=== PATIENT | female | born 1995 | race Hispanic/Latino ===

== ENCOUNTER 2019-04-13 18:18 | Inpatient (IN) | payer OTHER ==
[2019-04-13] MEDS ORDERED: Butorphanol Tartrate 1 MG/ML VIAL SLOW IVP PRN (20:38)
[2019-04-13] MEDS ORDERED: Ibuprofen 800 MG TAB PO PRN (20:38)
[2019-04-13] MEDS ORDERED: Zolpidem Tartrate 5 MG TAB PO PRN (20:38)
[2019-04-13] MEDS ORDERED: Docusate 100 MG CAP PO PRN (20:38)
[2019-04-13] MEDS ORDERED: NS / Oxytocin 40 units/1000ml 1,000 ML IV PRN (20:38)
[2019-04-13] MEDS ORDERED: HYDROcodone/Acetaminophen 5/325 mg Tablet PO PRN ×2 (20:38)
[2019-04-13] MEDS ORDERED: Misoprostol 200 MCG TAB PR PRN (20:38)
[2019-04-13] MEDS ORDERED: Promethazine HCl 25 MG/ML VIAL IM PRN (20:38)
[2019-04-13] MEDS ORDERED: Lidocaine 1% (PF) 30 ML VIAL SC PRN (20:38)
[2019-04-13] MEDS ORDERED: Ondansetron PF 4 MG/2 ML Vial IVP PRN (20:38)
[2019-04-13] MEDS ORDERED: hydrALAZINE 20 MG/ML VIAL SLOW IVP PRN (20:38)
[2019-04-13] MEDS ORDERED: Diphenoxylate HCl/Atropine Tablet PO PRN ×2 (20:38)
[2019-04-13] MEDS ORDERED: Acetaminophen 500 MG TAB PO PRN (20:38)
[2019-04-13] MEDS ORDERED: NS w/ Oxytocin 10 units 500 ML IV SCH (20:45)
[2019-04-13] MEDS: Lactated Ringer's 1,000 ML IV SCH (20:45)
--- NOTE | 2019-04-13 20:45 | PDOC.LDHP ---
Labor and Delivery H&P Chief complaint: scheduled induction HPI: 23 y/o at 39 and 3/7 weeks presents for term induction of labor. Patient has was councilled extensively regarding her smaller pelvic outlet and that she is at risk of arrest of labor and shoulder dystocia. She, however, asked for a trial of labor, rather than a scheduled . As such, she has presented for induction of labor and a trial for . Current gestational age (weeks): 39 Due date: 04/17/19 Grav: 1 Para: 0 Current complications: none Abnormal US findings: No Current medications: pre-kenny vitamins Social history: none - Physical Exam Vital signs reviewed and normal: yes General: NAD, resting Heart: RRR Lungs: CTAB Abdomen: gravid Extremeties: no edema FHT: category 1 - Assessment L&D Assessment: elective induction at term - Plan Plan: admit to L&D, cervical ripening
[2019-04-13 21:13] LABS: Hemoglobin 14.2 g/dL (12.0-16.0); Mean Corpuscular HGB CONC 34.6 g/dL (32.0-36.0); Mean Corpuscular Hemoglobin 31.3 pg (27.0-31.0); Mean Corpuscular Volume 90.7 fL (78.0-98.0); Platelet Count 170 thou/uL (130-400); RBC Distribution Width 13.1 % (11.5-14.5); Red Blood Cell (RBC) Count 4.52 mill/uL (4.20-5.40); White Blood Cell (WBC) Count 6.2 thou/uL (4.8-10.8)
[2019-04-13] MEDS: Misoprostol 100 MCG TAB VAG SCH (21:13)
[2019-04-13 21:50] LABS: Syphilis Antibody Nonreactive (Nonreactive); Syphilis Antibody Index 0.05 S/CO (<1.00 Non-Reactive)
[2019-04-14 01:05] LABS: HBSAg Index 0.28 S/CO (0-0.99); Hep B Surf Ag Non-Reactive S/CO (NonReactive)
[2019-04-14] MEDS: Misoprostol 100 MCG TAB VAG SCH ×2 (01:14→04:11)
[2019-04-14] MEDS: Lactated Ringer's 1,000 ML IV SCH (04:11)
[2019-04-14] MEDS ORDERED: Fentanyl 4 mcg/Bup 0.1% Cadd 100 ML ONE ×2 (15:42→23:11)
[2019-04-14] MEDS ORDERED: Bupivacaine 0.5% 10 ML VIAL ONE (15:50)
[2019-04-14] MEDS ORDERED: Fentanyl 100 MCG/2 ML VIAL ONE (15:50)
[2019-04-14] MEDS ORDERED: Fentanyl 100 MCG/2 ML VIAL I-THECAL ONE (16:22)
[2019-04-14] MEDS ORDERED: Ondansetron PF 4 MG/2 ML Vial IVP PRN (16:23)
[2019-04-14] MEDS ORDERED: Promethazine HCl 25 MG/ML VIAL IM PRN (16:23)
[2019-04-14] MEDS ORDERED: Lactated Ringer's 500 ML IV PRN (16:23)
[2019-04-14] MEDS ORDERED: diphenhydrAMINE 50 MG/ML VIAL IVP PRN (16:23)
[2019-04-14] MEDS ORDERED: Acetaminophen 325 MG TAB PO PRN (16:23)
[2019-04-14] MEDS ORDERED: Naloxone HCl 0.4 mg/ml Vial IVP PRN ×2 (16:23)
[2019-04-14] MEDS ORDERED: EPHEDRINE 25 MG/5 ML SYRINGE SLOW IVP PRN (16:23)
[2019-04-14] MEDS ORDERED: Communication Order-Pharmacy FS SCH (16:30)
[2019-04-14] MEDS ORDERED: Fentanyl 4 mcg/Bupivacaine 0.1% Cassette 100 ML EPIDURAL SCH (16:30)
[2019-04-14] MEDS ORDERED: Bupivacaine 0.25% 10 ML VIAL EPIDURAL SCH (16:30)
[2019-04-14] MEDS: NS w/ Oxytocin 10 units 500 ML IV SCH (20:58)
[2019-04-15] MEDS ORDERED: Bicitra 30 ML UDCUP ONE (01:11)
[2019-04-15] MEDS ORDERED: MORPHINE 5 MG/10 ML PF VIAL ONE (01:51)
[2019-04-15] MEDS ORDERED: Ondansetron PF 4 MG/2 ML Vial ONE (01:52)
[2019-04-15] MEDS ORDERED: Lidocaine 2% MPF 10 ML AMP (For Epidural Use) ONE (01:52)
[2019-04-15] MEDS ORDERED: Oxytocin 10 UNITS/ML VIAL ONE ×2 (01:52→03:01)
[2019-04-15] MEDS ORDERED: Meperidine HCl/PF 25 MG/ML VIAL SLOW IVP PRN (03:15)
[2019-04-15] MEDS ORDERED: L&D-Morphine 4 MG/ML VIAL SLOW IVP PRN (03:15)
[2019-04-15] MEDS ORDERED: Ketorolac Tromethamine 30 MG/ML VIAL IVP SCH (03:15)
[2019-04-15] MEDS ORDERED: HYDROmorphone 2 MG/ML VIAL SLOW IVP PRN (03:15)
[2019-04-15] MEDS ORDERED: Ondansetron HCl/PF 4 MG/2 ML Vial IVP PRN (03:15)
[2019-04-15] MEDS ORDERED: diphenhydrAMINE 50 MG/ML VIAL IVP PRN (03:16)
[2019-04-15] MEDS ORDERED: Naloxone HCl 0.4 mg/ml Vial IV PRN (03:16)
[2019-04-15] MEDS ORDERED: Promethazine HCl 25 MG/ML VIAL IM PRN ×2 (03:16→11:02)
[2019-04-15] MEDS ORDERED: Ketorolac Tromethamine 30 MG/ML VIAL IVP PRN (03:16)
[2019-04-15] MEDS ORDERED: Naloxone HCl 0.4 mg/ml Vial IVP PRN ×2 (03:16)
[2019-04-15] MEDS ORDERED: Ondansetron PF 4 MG/2 ML Vial IVP PRN ×2 (03:16→11:02)
[2019-04-15] MEDS ORDERED: Promethazine HCl 25 MG SUPP PR PRN (03:16)
[2019-04-15] MEDS ORDERED: Communication Order-Pharmacy FS SCH (03:30)
[2019-04-15] MEDS ORDERED: Ketorolac Tromethamine 30 MG/ML VIAL ONE (03:31)
[2019-04-15] MEDS: Methylergonovine 0.2 MG/ML VIAL IM PRN ×2 (03:33→05:30)
[2019-04-15] MEDS: Misoprostol 100 MCG TAB VAG SCH (03:44)
[2019-04-15] MEDS ORDERED: Misoprostol 200 MCG TAB ONE (04:19)
[2019-04-15] MEDS ORDERED: Carboprost 250 MCG/ML AMP ONE ×2 (05:03→05:28)
[2019-04-15] MEDS: Carboprost 250 MCG/ML AMP IM PRN ×2 (05:15→05:40)
[2019-04-15] MEDS ORDERED: Carboprost 250 MCG/ML AMP IM SCH (05:15)
[2019-04-15] MEDS ORDERED: Methylergonovine 0.2 MG/ML VIAL ONE (05:27)
[2019-04-15] MEDS ORDERED: hydrALAZINE 20 MG/ML VIAL ONE (06:01)
[2019-04-15] MEDS ORDERED: Diphenoxylate HCl/Atropine Tablet PO SCH (07:30)
[2019-04-15 08:26] LABS: Hemoglobin 13.7 g/dL (12.0-16.0); Mean Corpuscular HGB CONC 34.5 g/dL (32.0-36.0); Mean Corpuscular Hemoglobin 31.2 pg (27.0-31.0); Mean Corpuscular Volume 90.7 fL (78.0-98.0); Mean Platelet Volume 9.8 fL (7.4-10.4); Platelet Count 151 thou/uL (130-400); RBC Distribution Width 13.1 % (11.5-14.5); Red Blood Cell (RBC) Count 4.39 mill/uL (4.20-5.40); White Blood Cell (WBC) Count 16.1 thou/uL (4.8-10.8)
[2019-04-15] MEDS: Clindamycin/D5W 900 MG in Premix Bag 1 BAG IVPB SCH ×2 (09:07→17:40)
[2019-04-15] MEDS ORDERED: NS / Oxytocin 40 units/1000ml 1,000 ML ONE (09:29)
[2019-04-15] MEDS: CEFAZOLIN 2 GM in Premix Bag 1 BAG IVPB SCH ×2 (10:42→18:42)
[2019-04-15] MEDS ORDERED: hydrALAZINE 20 MG/ML VIAL SLOW IVP PRN (11:02)
[2019-04-15] MEDS ORDERED: Bisacodyl 10 MG SUPP PR PRN (11:02)
[2019-04-15] MEDS ORDERED: Misoprostol 200 MCG TAB PR PRN (11:02)
[2019-04-15] MEDS ORDERED: Zolpidem Tartrate 5 MG TAB PO PRN (11:02)
[2019-04-15] MEDS ORDERED: Methylergonovine 0.2 MG/ML VIAL IM PRN (11:02)
[2019-04-15] MEDS ORDERED: Lanolin Ointment 7 GM TUBE TOP PRN (11:02)
[2019-04-15] MEDS ORDERED: diphenhydrAMINE 25 MG CAP PO PRN (11:02)
[2019-04-15] MEDS ORDERED: Adacel (T-DAP) 0.5 ML SYRINGE IM ONE (11:02)
[2019-04-15] MEDS ORDERED: Simethicone Chewable 80 MG TAB PO PRN (11:02)
[2019-04-15] MEDS ORDERED: NS / Oxytocin 40 units/1000ml 1,000 ML IV SCH (11:02)
[2019-04-15] MEDS ORDERED: Measles/Mumps/Rubella 10 MCG/0.5 ML VIAL SC ONE (11:02)
[2019-04-15] MEDS ORDERED: Varicella virus, LIVE 0.5 ML VIAL SC ONE (11:02)
[2019-04-15] MEDS ORDERED: Docusate Calcium (SURFAK) 240 MG CAP PO SCH (11:45)
[2019-04-15] MEDS ORDERED: Prenatal Vitamin 1 TAB PO SCH (11:45)
[2019-04-15] MEDS: Ibuprofen 800 MG TAB PO SCH ×2 (11:56→23:59)
[2019-04-15] MEDS ORDERED: Diphenoxylate HCl/Atropine Tablet PO PRN (12:00)
--- NOTE | 2019-04-15 13:42 | PDOC.PP ---
Post Progress Note Post Day #: 0 PO intake tolerated: yes Flatus: no Ambulation: no (Immidiate post-op fever, now improved to 100.4 F. patient on Abcef and Clindamycin. Post operative hemorrhage (mild) also appears to have resolved. Will monitor closely, currently on L&D.) Vital Signs (12 hours) Pulse BP Pulse Ox 04/15/19 07:12 95 04/15/19 06:05 100 165/97 H Weight Weight 5.115 oz - Physical Examination General: NAD Cardiovascular: no m/r/g, RRR Respiratory: clear to auscultation bilaterally, non-labored breathing Abdominal: + bowel sounds, lochia, no distention Extremities: negative homans (B) Skin: CS incision dry & intact, no rash Neurological: no gross focal deficits Psychiatric: A&Ox3, normal affect Result Diagrams: 04/15/19 08:14 Additional Labs: Post Labs Blood Type B POSITIVE 04/13/19 21:16 Hep Bs Antigen Non-Reactive S/CO (NonReactive) 04/13/19 20:45
[2019-04-15] MEDS ORDERED: HYDROcodone/Acetaminophen 5/325 mg Tablet PO PRN (15:30)
[2019-04-15] MEDS: HYDROcodone/Acetaminophen 5/325 mg Tablet PO PRN ×2 (17:53→23:59)
[2019-04-15] MEDS: Docusate Calcium (SURFAK) 240 MG CAP PO SCH (23:59)
[2019-04-16] MEDS: Clindamycin/D5W 900 MG in Premix Bag 1 BAG IVPB SCH ×2 (00:16→09:12)
[2019-04-16] MEDS: CEFAZOLIN 2 GM in Premix Bag 1 BAG IVPB SCH ×3 (02:18→17:56)
[2019-04-16 06:48] LABS: Hemoglobin 10.2 g/dL (12.0-16.0); Mean Corpuscular HGB CONC 34.4 g/dL (32.0-36.0); Mean Corpuscular Hemoglobin 31.9 pg (27.0-31.0); Mean Corpuscular Volume 92.7 fL (78.0-98.0); Mean Platelet Volume 9.5 fL (7.4-10.4); Platelet Count 148 thou/uL (130-400); RBC Distribution Width 13.2 % (11.5-14.5); Red Blood Cell (RBC) Count 3.21 mill/uL (4.20-5.40); White Blood Cell (WBC) Count 11.7 thou/uL (4.8-10.8)
[2019-04-16] MEDS: Prenatal Vitamin 1 TAB PO SCH (09:17)
[2019-04-16] MEDS: Docusate Calcium (SURFAK) 240 MG CAP PO SCH ×2 (09:17→21:10)
[2019-04-16] MEDS: Ibuprofen 800 MG TAB PO SCH ×3 (09:21→23:12)
[2019-04-16] MEDS: Sodium Chloride 0.9% 10 ML ONE ×2 (10:59→17:55)
--- NOTE | 2019-04-16 14:16 | PDOC.PP ---
Post Progress Note Post Day #: 1 PO intake tolerated: yes Flatus: yes Ambulation: yes Vital Signs (12 hours) Temp Pulse Resp BP Pulse Ox 04/16/19 12:07 97.4 F L 96 15 105/66 98 04/16/19 08:33 98.1 F 89 17 104/56 L 98 04/16/19 04:30 97.9 F 78 18 106/56 L 97 Weight Weight 5.115 oz - Physical Examination General: NAD Cardiovascular: no m/r/g, RRR Respiratory: clear to auscultation bilaterally Abdominal: + bowel sounds, lochia Extremities: negative homans (B) Skin: CS incision dry & intact, no rash Neurological: no gross focal deficits (PAtient afebrile. Doing well. Possible DC to home tomorrow vs Thursday.) Psychiatric: A&Ox3, normal affect Result Diagrams: 04/16/19 06:25 Additional Labs: Post Labs Blood Type B POSITIVE 04/13/19 21:16 Hep Bs Antigen Non-Reactive S/CO (NonReactive) 04/13/19 20:45
[2019-04-17] MEDS: Ibuprofen 800 MG TAB PO SCH ×2 (01:40→10:00)
[2019-04-17] MEDS: CEFAZOLIN 2 GM in Premix Bag 1 BAG IVPB SCH ×2 (01:41→10:01)
[2019-04-17] MEDS: NS w/ Oxytocin 10 units 500 ML IV SCH (04:29)
[2019-04-17] MEDS: Lactated Ringer's 1,000 ML IV SCH ×2 (04:29→04:30)
[2019-04-17] MEDS: Misoprostol 100 MCG TAB VAG SCH ×2 (04:30→04:31)
--- NOTE | 2019-04-17 08:19 | PDOC.PP ---
Post Progress Note Post Day #: 2 PO intake tolerated: yes Flatus: yes Ambulation: yes Vital Signs (12 hours) Temp Pulse Resp BP Pulse Ox 04/17/19 08:17 98.5 F 66 15 140/71 98 04/17/19 01:36 99.6 F 103 H 14 125/62 04/16/19 21:13 98 04/16/19 19:36 98.5 F 88 12 111/56 L Weight Weight 5.115 oz - Physical Examination General: NAD Cardiovascular: no m/r/g Respiratory: clear to auscultation bilaterally, non-labored breathing Abdominal: + bowel sounds, lochia, no distention Extremities: negative homans (B) Skin: CS incision dry & intact, no rash Neurological: no gross focal deficits Psychiatric: A&Ox3 (DC in am planned. DC Ancef today), normal affect Result Diagrams: 04/16/19 06:25 Additional Labs: Post Labs Blood Type B POSITIVE 04/13/19 21:16 Hep Bs Antigen Non-Reactive S/CO (NonReactive) 04/13/19 20:45
--- NOTE | 2019-04-17 08:48 | OP ---
DATE OF PROCEDURE: 04/15/2019 PREOPERATIVE DIAGNOSIS: Intrauterine at 39 weeks and 5 days with failure to descend. POSTOPERATIVE DIAGNOSIS: Intrauterine at 39 weeks and 5 days with failure to descend. PROCEDURE PERFORMED: Primary low transverse section using a Pfannenstiel skin incision. FINDINGS: Viable female weighing 3235 g or 7 pounds 2 ounces, Apgars 8 and 9. QUANTITATIVE BLOOD LOSS: 725 mL. COMPLICATIONS: None. DETAILS OF THE PROCEDURE: The patient was consented and taken back to the operating room where spinal anesthesia was found to be adequate. She was then prepped and draped in the normal sterile fashion. A timeout was performed by the entire operative team. The incision was then marked with a marking pen tested using sharp pickups. An incision was then made with a scalpel. The incision was carried through the adipose tissue down to the underlying rectus fascia using both sharp dissection as well as cautery. Once the fascia was identified, it was incised in the midline and then the fascial incision was carried through in both lateral directions using sharp as well as cautery dissection techniques. Next, the superior aspect of the rectus fascia was grasped with 2 Roselyn clamps, which was tented up and the rectus muscles were dissected off using blunt dissection as well as cautery dissection. Similarly, the inferior aspect of the fascial incision was grasped with 2 Roselyn clamps, tented up and the rectus muscles were dissected off bluntly as well as sharply. Next, the rectus muscles were in the midline and the peritoneum identified. The peritoneum was then carefully grasped with 2 hemostats and entered sharply. The peritoneal incision was extended superiorly and inferiorly and bladder blade was placed in the lower abdomen. At this point, the uterus was identified and the bladder flap was then developed using pickups with teeth as well as Metzenbaum scissors in both lateral directions. The bladder flap was then dissected downwards using the auger operator's finger as well as Metzenbaum scissors. The bladder blade was replaced. The lower uterine segment was then identified and entered sharply using a clean scalpel. The uterine incision was then dissected downwards until thin layer of muscle remained and this was entered bluntly using a hemostat to avoid any injury to the baby. The uterine incision was then stretched using two fingers in both lateral directions. An amniotomy was performed artificially using a hemostat and the baby was delivered using fundal pressure in a gentle fashion. Once out, the baby's mouth and nose were bulb suctioned, cord clamped and cut, and the baby was handed to waiting attendants. Next, the uterus was exteriorized, cleared of all clots and debris and the uterine incision was repaired with #1 Monocryl in a running locking fashion. A 2nd suture of the same type was used to obtain complete hemostasis at the uterine incision. The bladder flap was reapproximated using 3-0 Monocryl. Next, patient's left and right adnexa were inspected and appeared to be within normal limits. The posterior cul-de-sac was blotted dry and hemostasis assured. One more look at the uterine incision demonstrated hemostasis. Next, the uterus was replaced back within the abdomen. The peritoneum was reapproximated using 2-0 Monocryl without difficulty. The rectus muscles were then allowed to come back together and 0 chromic was used to aid in reapproximation of the muscle as necessary. The rectus fascia was then reapproximated in a running fashion using 0 Vicryl suture. The adipose tissue was then examined and appeared to be well approximated without any obvious separations. Finally, the skin was reapproximated with 3-0 Monocryl on a Tello needle without difficulty and Dermabond adhesive was applied to the skin. Once the glue was dry, the drapes were removed and the patient was transferred to an ambulatory bed where she was taken to recovery awake and in stable condition. Sponge, lap, and needle counts were correct x3. Job ID: [id number]
[2019-04-17] MEDS ORDERED: Sodium Chloride 0.9% 10 ML ONE (09:59)
[2019-04-17] MEDS: Prenatal Vitamin 1 TAB PO SCH (10:00)
[2019-04-17] MEDS: Docusate Calcium (SURFAK) 240 MG CAP PO SCH (10:01)
[2019-04-17 12:10] VITALS: TEMP 98
[2019-04-17 15:42] VITALS: BP 130/82
== END 2019-04-17 17:55 | disposition home or self-care (01) | DRG 787 ==
LOC: L&D 18:18 → 3SW 04-15 22:05
PROVIDERS: ADMIT Obstetrics & Gynecology; ATTEND Obstetrics & Gynecology
PROC: 10D00Z1 Extraction of Products of Conception, Low, Open Approach (ICD-10-PCS; principal; 2019-04-15)
DX: O66.40 Failed trial of labor, unspecified (principal); O72.1 Other immediate postpartum hemorrhage; Z3A.39 39 weeks gestation of pregnancy; Z37.0 Single live birth
CPT/HCPCS: 36415; 51702; 85027; 86780; 86850; 86900; 86901; 87340; 90715; J0360; J0690; J1885; J2001; J2210; J2274; J2405; J2550; J2590; J3010; J3490